=== PATIENT | female | born 1955 | race African-American/Black ===

== ENCOUNTER 2017-10-31 12:43 | Emergency (ER) | payer OTHER, SELFPAY | END 2017-10-31 14:35 | disposition home or self-care (01) | LOC: ERS 12:43 | DX: K02.9 Dental caries, unspecified (principal); E11.9 Type 2 diabetes mellitus without complications; I10 Essential (primary) hypertension; Z79.84 Long term (current) use of oral hypoglycemic drugs; Z79.899 Other long term (current) drug therapy | CPT/HCPCS: 99283 ==

== ENCOUNTER 2018-03-30 17:19 | Emergency (ER) | payer MEDICARE, SELFPAY ==
[2018-03-30 18:28] LABS: Bilirubin Negative (Negative); Blood, Urine Large (Negative); Clarity CLEAR (Clear); Glucose, Urine (Dipstick) Negative (Negative); Leukocyte Small (Negative); Nitrite Negative (Negative); Protein, Urine (Dipstick) Negative (Neg-Trace); Specific Gravity, Urine 1.014 (1.002-1.036); pH, Urine 5.5 (5.0-9.0)
[2018-03-30 18:31] LABS: Bacteria/HPF None Seen HPF (None Seen); Hyaline Casts/LPF 0-3 HYALINE CAST LPF (0-3 Hyaline); RBC/HPF 21-50 HPF (0-3); Squamous Epithelial 0-3 HPF (0-3)
== END 2018-03-30 19:21 | disposition home or self-care (01) ==
LOC: ERS 17:19
DX: N39.0 Urinary tract infection, site not specified (principal); E11.9 Type 2 diabetes mellitus without complications; I10 Essential (primary) hypertension; Z79.84 Long term (current) use of oral hypoglycemic drugs; Z79.899 Other long term (current) drug therapy
CPT/HCPCS: 81003; 81015; 87086; 99283

== ENCOUNTER 2018-05-01 18:20 | Emergency (ER) | payer MEDICARE ==
--- NOTE | 2018-05-01 20:18 | RAD ---
CHEST TWO VIEWS: 05/01/18 HISTORY: Cough. Heart size is slightly enlarged. There are atherosclerotic changes of the aorta. Lungs are clear of i nfiltrates. No signs of failure. IMPRESSION: Minimal cardiomegaly. POS: [facility]
== END 2018-05-01 20:24 | disposition home or self-care (01) ==
LOC: ERS 18:20
DX: J20.9 Acute bronchitis, unspecified (principal); E11.9 Type 2 diabetes mellitus without complications; I10 Essential (primary) hypertension
CPT/HCPCS: 71046; 87804

== ENCOUNTER 2018-12-29 22:28 | Emergency (ER) | payer MEDICARE ==
[2018-12-29] MEDS ORDERED: Cyclobenzaprine 10 MG TAB ONE (23:01)
[2018-12-29] MEDS ORDERED: Naproxen 500 MG TAB ONE (23:02)
== END 2018-12-29 23:35 | disposition home or self-care (01) ==
LOC: ERS 22:28
DX: S29.012A Strain of muscle and tendon of back wall of thorax, initial encounter (principal); E11.9 Type 2 diabetes mellitus without complications; I10 Essential (primary) hypertension; Z79.84 Long term (current) use of oral hypoglycemic drugs; Z79.899 Other long term (current) drug therapy; X50.9XXA Other and unspecified overexertion or strenuous movements or postures, initial encounter
CPT/HCPCS: 99283

== ENCOUNTER 2018-12-30 16:28 | Emergency (ER) | payer MEDICARE ==
--- NOTE | 2018-12-30 18:17 | RAD ---
RIGHT SHOULDER THREE VIEWS: 12/30/18 COMPARISON: None. HISTORY: Right arm pain. FINDINGS: There is mild degenerative change involving the right acromioclavicular interspace. There is no widen ing of the AC or CC interspace. There is no displaced fracture or evidence of dislocation seen. Linea r artifact is noted overlying the soft tissues superior to the clavicle which may be associated with something external to the patient. IMPRESSION: Degenerative change of the right acromioclavicular joint. No acute fracture or dislocation seen. POS: [facility]
[2018-12-30] MEDS ORDERED: Ibuprofen 800 MG TAB ONE (19:31)
== END 2018-12-30 19:35 | disposition home or self-care (01) ==
LOC: ERS 16:28
DX: M25.511 Pain in right shoulder (principal); E11.9 Type 2 diabetes mellitus without complications; I10 Essential (primary) hypertension; Z79.84 Long term (current) use of oral hypoglycemic drugs; Z79.899 Other long term (current) drug therapy

== ENCOUNTER 2019-03-10 10:03 | Outpatient (CLI) | payer MEDICARE ==
--- NOTE | 2019-03-10 10:32 | RAD ---
EXAM: Right shoulder 3 views: HISTORY: Acute right shoulder pain COMPARISON: 12/30/2018 FINDINGS: A C joint arthrosis. Degenerative changes. No acute fracture or dislocation or other significant acute osseous abnormality. IMPRESSION: No significant acute process. Stable appearance.
--- NOTE | 2019-03-10 11:54 | RAD ---
RIGHT THUMB THREE VIEWS: HISTORY: Pain in the right thumb. Osteoarthritis. FINDINGS: Mild degenerative changes are present. No fracture, dislocation or bony destruction is identified. POS: [facility]
== END 2019-03-10 10:04 | disposition home or self-care (01) ==
LOC: BICRAD 10:03
PROVIDERS: ATTEND Internal Medicine
DX: M25.511 Pain in right shoulder (principal); M19.041 Primary osteoarthritis, right hand

== ENCOUNTER 2019-03-17 11:55 | Emergency (ER) | payer MEDICARE | END 2019-03-17 14:17 | disposition home or self-care (01) | LOC: ERS 11:55 | DX: M54.31 Sciatica, right side (principal); E11.9 Type 2 diabetes mellitus without complications; I10 Essential (primary) hypertension; Z79.899 Other long term (current) drug therapy | CPT/HCPCS: 99283 ==

== ENCOUNTER 2019-03-26 10:38 | Outpatient (CLI) | payer MEDICARE ==
--- NOTE | 2019-03-26 11:42 | RAD ---
AP knees one view HISTORY: Knee pain. FINDINGS: Mild joint space narrowing of the medial compartment of each knee. Moderate osteophytosis o f the tibial spines. No acute fracture or dislocation evident. Lateral views not included. IMPRESSION: Mild osteoarthritic changes of each knee with mild joint space narrowing of the medial co mpartments.
--- NOTE | 2019-03-26 11:58 | RAD ---
Left hip 2 views HISTORY: Left hip pain. FINDINGS: Severe joint space narrowing. Moderate osteophytosis and subchondral sclerosis. Femoral hea d contour is maintained. No acute fracture, dislocation, or aggressive osseous erosions. IMPRESSION: Moderate osteoarthritic changes left hip.
--- NOTE | 2019-03-26 11:59 | RAD ---
Right hip 2 views HISTORY: Right hip pain. FINDINGS: Moderate joint space narrowing. Mild osteophytosis and subchondral sclerosis. Femoral head contour is maintained. No acute fracture, dislocation, or aggressive osseous erosions. IMPRESSION: Mild to moderate osteoarthritic changes right hip.
== END 2019-03-26 10:39 | disposition home or self-care (01) ==
LOC: BICRAD 10:38
PROVIDERS: ATTEND Internal Medicine
DX: M25.561 Pain in right knee (principal); M25.551 Pain in right hip; M25.552 Pain in left hip; M16.0 Bilateral primary osteoarthritis of hip; M17.11 Unilateral primary osteoarthritis, right knee

== ENCOUNTER 2019-04-17 17:28 | Emergency (ER) | payer MEDICARE | END 2019-04-17 19:10 | disposition home or self-care (01) | LOC: ERS 17:28 | DX: R09.81 Nasal congestion (principal); R05 Cough; I10 Essential (primary) hypertension; E11.9 Type 2 diabetes mellitus without complications; Z79.84 Long term (current) use of oral hypoglycemic drugs; Z79.899 Other long term (current) drug therapy | CPT/HCPCS: 99281 ==

== ENCOUNTER 2022-01-18 11:43 | Emergency (ER) | payer MEDICARE ==
[2022-01-18 12:55] LABS: Bacteria/HPF 4+ HPF (None Seen); Bilirubin Negative (Negative); Blood, Urine Negative (Negative); Clarity Turbid (Clear); Glucose, Urine (Dipstick) Normal (Negative); Ketone, Urine Trace mg/dL (Negative); Leukocyte 75 Leu/uL (Negative); Nitrite 2+ (Negative); Protein, Urine (Dipstick) 30 mg/dL (Neg-Trace); RBC/HPF 0-3 HPF (0-3); Specific Gravity, Urine 1.026 (1.002-1.036); Squamous Epithelial 0-3 HPF (0-3); WBC/HPF 21-50 HPF (0-3)
[2022-01-18] MEDS ORDERED: cefTRIAXone\\ROCEPHIN 1 GM VIAL ONE (13:26)
[2022-01-18] MEDS ORDERED: Lidocaine 1% MPF 2 ML VIAL ONE (13:26)
== END 2022-01-18 14:07 | disposition home or self-care (01) ==
LOC: ERS 11:43
DX: N39.0 Urinary tract infection, site not specified (principal); E11.9 Type 2 diabetes mellitus without complications; I10 Essential (primary) hypertension
CPT/HCPCS: 81003; 81015; 87077; 87086; 87186; 96372; 99283; J0696

== ENCOUNTER 2023-05-10 12:58 | Emergency (ER) | payer MEDICARE ==
[2023-05-10 13:58] LABS: #Eosinphils 0.1 thou/uL (0.0-0.7); #Monocytes 0.5 thou/uL (0.11-0.59); %Basophils 0.2 % (0.0-1.0); %Eosinophils 2.8 % (0.0-10.0); %Lymphocytes 23.1 % (21.0-51.0); %Monocytes 10.2 % (0.0-10.0); %Neutrophils 63.3 % (42.0-75.0); Hemoglobin 11.6 g/dL (12.0-16.0); Mean Corpuscular HGB CONC 33.1 g/dL (32.0-36.0); Mean Corpuscular Hemoglobin 21.6 pg (27.0-31.0); Mean Corpuscular Volume 65.1 fl (78.0-98.0); Mean Platelet Volume 10.3 fL (7.4-10.4); Platelet Count 196 10x3/uL (130-400); RBC Distribution Width 17.1 % (11.5-14.5); Red Blood Cell (RBC) Count 5.38 mill/uL (4.20-5.40); White Blood Cell (WBC) Count 4.7 10x3/uL (4.8-10.8)
[2023-05-10 14:17] LABS: Anisocytosis SLIGHT = 6-15 cells (100X) (0-5/hpf); Microcytosis SLIGHT = 6-15 cells (100X) (0-5/hpf); Platelet Adequacy Comment Platelets Normal; Target Cells SLIGHT = 2-5 cells (100X) (0-1/hpf)
[2023-05-10 14:20] LABS: ALT (SGPT) 14 U/L (8-55); AST (SGOT) 19 U/L (5-34); Albumin 3.6 g/dL (3.4-4.8); Alkaline Phosphatase 79 U/L (40-110); Anion Gap 17 mmol/L (10-20); BUN (Urea Nitrogen) 12 mg/dL (9.8-20.1); Bilirubin, Total 0.4 mg/dL (0.2-1.2); Calc. Creatinine Clearance 0 mL/min (70-130); Calcium 8.5 mg/dL (7.8-10.44); Carbon Dioxide 25 mmol/L (23-31); Chloride 97 mmol/L (98-107); Estimated GFR 60; Globulin 3.9 g/dL (2.4-3.5); Glucose 150 mg/dL (80-115); Potassium 3.7 mmol/L (3.5-5.1); Protein, Total 7.5 g/dL (5.8-8.1); Sodium 135 mmol/L (136-145)
== END 2023-05-10 17:27 | disposition home or self-care (01) ==
LOC: ERS 12:58
DX: R19.7 Diarrhea, unspecified (principal); R53.83 Other fatigue; J30.2 Other seasonal allergic rhinitis; I10 Essential (primary) hypertension; E11.9 Type 2 diabetes mellitus without complications; Z79.84 Long term (current) use of oral hypoglycemic drugs; Z79.899 Other long term (current) drug therapy
CPT/HCPCS: 36415; 80053; 83605; 85025; 96360

== ENCOUNTER 2023-11-02 10:49 | Emergency (ER) | payer MEDICARE ==
[2023-11-02] MEDS ORDERED: Ketorolac Tromethamine 30 MG (1 mL) VIAL ONE (11:37)
== END 2023-11-02 11:43 | disposition home or self-care (01) ==
LOC: ERS 10:49
DX: M54.42 Lumbago with sciatica, left side (principal); I10 Essential (primary) hypertension; E11.9 Type 2 diabetes mellitus without complications; M19.90 Unspecified osteoarthritis, unspecified site; X50.0XXA Overexertion from strenuous movement or load, initial encounter; Y93.89 Activity, other specified; Z79.84 Long term (current) use of oral hypoglycemic drugs; Z79.899 Other long term (current) drug therapy
CPT/HCPCS: 96372; 99282; J1885